=== PATIENT | female | born 1975 | race African-American/Black ===

== ENCOUNTER 2020-09-06 23:32 | Inpatient (IN) | payer BC ==
[2020-09-07] MEDS ORDERED: ACETAMINOPHEN 500 MG TABLET (FP) PO ONE (00:49)
[2020-09-07] MEDS ORDERED: ACETAMINOPHEN 325 MG TABLET (FP) ONE (00:58)
[2020-09-07 01:45] LABS: EPI CELLS 32 /uL (0-25.1); HYALINE CASTS 2 /uL (0-3.1); PH,URINE 5.5 (5.0-8.0); URINE APPEARANCE CLEAR; URINE BACTERIA 4 /uL (0-1359); URINE BILIRUBIN NEGATIVE (NEGATIVE); URINE COLOR YELLOW; URINE GLUCOSE (UA) TRACE (NEGATIVE); URINE KETONE NEGATIVE (NEGATIVE); URINE LEUK ESTERASE NEGATIVE (NEGATIVE); URINE NITRITE NEGATIVE (NEGATIVE); URINE PROTEIN 2+ (NEGATIVE); URINE RBC 171 /uL (0-23.9); URINE UROBILINOGEN 0.2 mg/dL (0.2-1.0); URINE WBC 51 /uL (0-25.8)
[2020-09-07] MEDS ORDERED: SODIUM CHLORIDE 0.9% 500 ML INFUS.BAG IV ONE (01:54)
[2020-09-07] MEDS ORDERED: POLYETHYLENE GLYCOL 3350 119 GM BTL PO ONE (01:55)
[2020-09-07] MEDS ORDERED: morphine CARPU-JECT 2 MG/1 ML DISP.SYRIN IVPUSH ONE (01:55)
[2020-09-07] MEDS ORDERED: LACTULOSE 20 GM/30 ML UDC (FOR ORAL USE ONLY) PO ONE (02:00)
[2020-09-07] MEDS ORDERED: METOCLOPRAMIDE HCL INJECTION 10 MG/2 ML VIAL IVPB ONE (02:19)
[2020-09-07] MEDS ORDERED: LACTULOSE 20 GM/30 ML UDC (FOR ORAL USE ONLY) ONE (02:22)
[2020-09-07] MEDS ORDERED: METOCLOPRAMIDE HCL INJECTION 10 MG/2 ML VIAL ONE (02:23)
[2020-09-07] MEDS ORDERED: MORPHINE SULFATE 2 MG/ML VIAL ONE (02:23)
[2020-09-07 02:41] LABS: BASO % 0.3 % (0-2.0); EOS % 0.1 % (0-4.5); HEMATOCRIT 40.6 % (32.4-45.2); HEMOGLOBIN 13.4 GM/dL (10.7-15.3); LYMPH % 9.6 % (8-40); MCH 28.2 pg (25.7-33.7); MEAN CELL VOLUME 85.6 fl (80-96); MEAN PLT VOLUME 8.2 fl (7.5-11.1); MONO % 4.1 % (3.8-10.2); NEUT % 85.9 % (42.8-82.8); PLATELET COUNT 264 K/MM3 (134-434); RBC 4.74 M/mm3 (3.60-5.2); WHITE BLOOD COUNT 10.9 K/mm3 (4.0-10.0)
[2020-09-07 02:59] LABS: SODIUM 130 mmol/L (136-145)
[2020-09-07 03:01] LABS: ALBUMIN 3.4 g/dl (3.4-5.0); BLOOD UREA NITROGEN 16.6 mg/dL (7-18); CALCIUM 8.7 mg/dL (8.5-10.1); CO2 23 mmol/L (21-32)
[2020-09-07 03:02] LABS: GLUCOSE,RANDOM 139 mg/dL (74-106)
[2020-09-07 03:05] LABS: CREATININE 2.2 mg/dL (0.55-1.3); SGOT/AST 71 U/L (15-37)
[2020-09-07 03:06] LABS: BILIRUBIN,TOTAL 0.4 mg/dL (0.2-1); TOT PROT 8.4 g/dl (6.4-8.2)
[2020-09-07 03:07] LABS: ALK PHOS 109 U/L (45-117)
[2020-09-07 03:22] LABS: ANION GAP 6 MMOL/L (8-16); CHLORIDE 101 mmol/L (98-107); SGPT/ALT 24 U/L (13-61)
[2020-09-07 03:31] LABS: POTASSIUM 7.5 mmol/L (3.5-5.1)
[2020-09-07 05:06] LABS: POTASSIUM 4.3 mmol/L (3.5-5.1)
[2020-09-07 05:08] LABS: ALBUMIN 3.4 g/dl (3.4-5.0); BLOOD UREA NITROGEN 17.9 mg/dL (7-18); CALCIUM 8.5 mg/dL (8.5-10.1)
[2020-09-07 05:12] LABS: CREATININE 2.2 mg/dL (0.55-1.3)
[2020-09-07 05:13] LABS: BILIRUBIN,TOTAL 0.4 mg/dL (0.2-1); TOT PROT 7.9 g/dl (6.4-8.2)
[2020-09-07] MEDS ORDERED: ACETAMINOPHEN 1000 MG/100 ML VIAL (NON FORMULARY) IVPB ONE (08:37)
[2020-09-07] MEDS ORDERED: ACETAMINOPHEN INJECTION 100 ML IVPB ONE (08:43)
[2020-09-07] MEDS: DEXTROSE 5%-0.45% SALINE 1,000 ML IV SCH (11:45)
[2020-09-07] MEDS: ACETAMINOPHEN 1000 MG/100 ML VIAL (NON FORMULARY) IVPB PRN ×2 (15:10→23:54)
[2020-09-07 15:39] VITALS: BMI 28.2
[2020-09-07] MEDS: HEPARIN NA (PORCINE) 5,000 UNITS/ML 1ML VIAL SQ SCH (22:02)
[2020-09-08] MEDS: DEXTROSE 5%-0.45% SALINE 1,000 ML IV SCH ×2 (06:01→18:40)
[2020-09-08] MEDS: ACETAMINOPHEN 1000 MG/100 ML VIAL (NON FORMULARY) IVPB PRN (06:02)
[2020-09-08 07:06] LABS: BASO % 0.4 % (0-2.0); EOS % 1.1 % (0-4.5); HEMATOCRIT 40.2 % (32.4-45.2); HEMOGLOBIN 13.2 GM/dL (10.7-15.3); LYMPH % 21.8 % (8-40); MCHC 32.8 g/dl (32.0-36.0); MEAN CELL VOLUME 85.3 fl (80-96); MEAN PLT VOLUME 7.9 fl (7.5-11.1); MONO % 7.5 % (3.8-10.2); NEUT % 69.2 % (42.8-82.8); PLATELET COUNT 278 K/MM3 (134-434); RBC 4.71 M/mm3 (3.60-5.2); RDW 12.8 % (11.6-15.6); WHITE BLOOD COUNT 7.6 K/mm3 (4.0-10.0)
[2020-09-08 08:03] LABS: POTASSIUM 4.2 mmol/L (3.5-5.1)
[2020-09-08 08:30] LABS: ALBUMIN 3.2 g/dl (3.4-5.0); BILIRUBIN,TOTAL 0.8 mg/dL (0.2-1); TOT PROT 7.3 g/dl (6.4-8.2)
[2020-09-08 08:34] LABS: CALCIUM 8.8 mg/dL (8.5-10.1)
[2020-09-08] MEDS ORDERED: PT OWN MED DRAWER 7, Y5N ONE ×2 (10:37→10:46)
[2020-09-08] MEDS: HEPARIN NA (PORCINE) 5,000 UNITS/ML 1ML VIAL SQ SCH ×3 (10:40→22:57)
[2020-09-09 08:06] LABS: BASO % 0.8 % (0-2.0); EOS % 6.4 % (0-4.5); HEMATOCRIT 35.6 % (32.4-45.2); HEMOGLOBIN 11.7 GM/dL (10.7-15.3); LYMPH % 31.6 % (8-40); MCH 28.1 pg (25.7-33.7); MCHC 32.9 g/dl (32.0-36.0); MEAN CELL VOLUME 85.3 fl (80-96); MEAN PLT VOLUME 7.9 fl (7.5-11.1); MONO % 9.8 % (3.8-10.2); NEUT % 51.4 % (42.8-82.8); PLATELET COUNT 254 K/MM3 (134-434); RBC 4.17 M/mm3 (3.60-5.2); RDW 12.7 % (11.6-15.6); WHITE BLOOD COUNT 6.2 K/mm3 (4.0-10.0)
[2020-09-09 08:29] LABS: POTASSIUM 3.7 mmol/L (3.5-5.1)
[2020-09-09 08:33] LABS: ALBUMIN 2.7 g/dl (3.4-5.0); CALCIUM 8.1 mg/dL (8.5-10.1)
[2020-09-09 08:36] LABS: CREATININE 0.8 mg/dL (0.55-1.3)
[2020-09-09 08:38] LABS: BILIRUBIN,TOTAL 0.6 mg/dL (0.2-1); TOT PROT 6.1 g/dl (6.4-8.2)
[2020-09-09] MEDS: HEPARIN NA (PORCINE) 5,000 UNITS/ML 1ML VIAL SQ SCH ×2 (09:58→21:59)
[2020-09-09] MEDS ORDERED: ACETAMINOPHEN 500 MG TABLET (FP) PO PRN (11:40)
[2020-09-09] MEDS: metroNIDAZOLE 250 MG TABLET PO SCH (21:58)
[2020-09-10] MEDS: metroNIDAZOLE 250 MG TABLET PO SCH ×3 (06:39→21:43)
[2020-09-10 08:11] LABS: POTASSIUM 3.9 mmol/L (3.5-5.1)
[2020-09-10 08:13] LABS: BLOOD UREA NITROGEN 9.7 mg/dL (7-18); CALCIUM 8.3 mg/dL (8.5-10.1)
[2020-09-10 08:17] LABS: CREATININE 0.7 mg/dL (0.55-1.3)
[2020-09-10] MEDS: HEPARIN NA (PORCINE) 5,000 UNITS/ML 1ML VIAL SQ SCH ×2 (10:58→21:51)
[2020-09-11] MEDS: metroNIDAZOLE 250 MG TABLET PO SCH ×3 (06:24→22:41)
[2020-09-11] MEDS: HEPARIN NA (PORCINE) 5,000 UNITS/ML 1ML VIAL SQ SCH ×2 (10:46→22:43)
[2020-09-11] MEDS: DEXTROSE 5%-0.45% SALINE 1,000 ML IV SCH (13:00)
[2020-09-11] MEDS ORDERED: ONDANSETRON 4 MG/2 ML VIAL IVPUSH PRN (13:30)
[2020-09-11 14:02] LABS: BASO % 0.7 % (0-2.0); EOS % 1.3 % (0-4.5); HEMATOCRIT 38.2 % (32.4-45.2); HEMOGLOBIN 12.7 GM/dL (10.7-15.3); LYMPH % 15.1 % (8-40); MCH 28.5 pg (25.7-33.7); MCHC 33.2 g/dl (32.0-36.0); MEAN CELL VOLUME 85.8 fl (80-96); MEAN PLT VOLUME 8.1 fl (7.5-11.1); MONO % 8.3 % (3.8-10.2); NEUT % 74.6 % (42.8-82.8); PLATELET COUNT 290 K/MM3 (134-434); RBC 4.45 M/mm3 (3.60-5.2); RDW 12.7 % (11.6-15.6); WHITE BLOOD COUNT 8.1 K/mm3 (4.0-10.0)
[2020-09-11 14:27] LABS: POTASSIUM 3.6 mmol/L (3.5-5.1)
[2020-09-11 14:32] LABS: ALBUMIN 3.2 g/dl (3.4-5.0); BLOOD UREA NITROGEN 8.9 mg/dL (7-18); CALCIUM 8.4 mg/dL (8.5-10.1)
[2020-09-11 14:36] LABS: BILIRUBIN,TOTAL 0.6 mg/dL (0.2-1); CREATININE 0.8 mg/dL (0.55-1.3); TOT PROT 6.8 g/dl (6.4-8.2)
[2020-09-11] MEDS: DOCUSATE SODIUM 100 MG CAPSULE (FP) PO SCH ×2 (15:53→22:43)
[2020-09-12] MEDS: metroNIDAZOLE 250 MG TABLET PO SCH ×3 (06:01→22:33)
[2020-09-12] MEDS: DOCUSATE SODIUM 100 MG CAPSULE (FP) PO SCH ×3 (06:02→22:34)
[2020-09-12 10:06] LABS: POTASSIUM 3.4 mmol/L (3.5-5.1)
[2020-09-12 10:10] LABS: BLOOD UREA NITROGEN 8.2 mg/dL (7-18); CALCIUM 8.3 mg/dL (8.5-10.1)
[2020-09-12 10:13] LABS: BILIRUBIN,TOTAL 0.9 mg/dL (0.2-1); CREATININE 0.8 mg/dL (0.55-1.3)
[2020-09-12 10:14] LABS: TOT PROT 6.8 g/dl (6.4-8.2)
[2020-09-12] MEDS: HEPARIN NA (PORCINE) 5,000 UNITS/ML 1ML VIAL SQ SCH ×2 (11:33→22:34)
[2020-09-12] MEDS: DEXTROSE 5%-0.45% SALINE 1,000 ML IV SCH (15:59)
[2020-09-12] MEDS ORDERED: POTASSIUM CHLORIDE ORAL LIQUID 20 MEQ/15 ML PO ONE (16:35)
[2020-09-12 22:14] VITALS: TEMP 98.9
[2020-09-13] MEDS: DOCUSATE SODIUM 100 MG CAPSULE (FP) PO SCH ×2 (05:02→05:21)
[2020-09-13] MEDS: metroNIDAZOLE 250 MG TABLET PO SCH (05:13)
[2020-09-13 06:06] VITALS: BP 112/67; PULSE 93
[2020-09-13] MEDS: HEPARIN NA (PORCINE) 5,000 UNITS/ML 1ML VIAL SQ SCH (09:55)
== END 2020-09-13 13:21 | disposition home or self-care (01) | DRG 699 ==
LOC: JER 23:32 → JERBED 09-07 03:47 → J8W 09-07 14:20
PROVIDERS: ADMIT Internal Medicine; ATTEND Internal Medicine
PROC: BT10ZZZ Fluoroscopy of Bladder (ICD-10-PCS; principal; 2020-09-12)
DX: N99.89 Other postprocedural complications and disorders of genitourinary system (principal); N17.9 Acute kidney failure, unspecified; E87.5 Hyperkalemia; R33.9 Retention of urine, unspecified; K66.9 Disorder of peritoneum, unspecified; N93.9 Abnormal uterine and vaginal bleeding, unspecified; E87.6 Hypokalemia; K59.09 Other constipation; R73.9 Hyperglycemia, unspecified; Y83.9 Surgical procedure, unspecified as the cause of abnormal reaction of the patient, or of later complication, without mention of misadventure at the time of the procedure; Z88.0 Allergy status to penicillin
CPT/HCPCS: 36415; 51600; 71045-TC-FY; 74018-TC-FY; 74021-TC-FY; 74176-TC; 74430-TC-FY; 76000-TC-FY; 80048; 80053; 81003; 84702; 84703; 85025; 87086; 93005; 93010; 99285-25; C9803; J0131; J1644; Q9967; U0003

== ENCOUNTER 2021-07-05 18:21 | Emergency (ER) | payer OTHER, BC ==
[2021-07-05 18:33] VITALS: BP 120/90; PULSE 84; TEMP 98; BMI 25.6
[2021-07-05] MEDS ORDERED: IBUPROFEN 600 MG TABLET (FP) PO ONE ×2 (18:58→18:59)
== END 2021-07-05 19:46 | disposition home or self-care (01) ==
LOC: JERFT 18:21 → JER 18:21 → JERFT 19:46
DX: M25.561 Pain in right knee (principal); R51.9 Headache, unspecified; V49.40XA Driver injured in collision with unspecified motor vehicles in traffic accident, initial encounter
CPT/HCPCS: 99283-25

== ENCOUNTER 2021-07-30 11:43 | Inpatient (IN) | payer BC, OTHER ==
[2021-07-30] MEDS ORDERED: ACETAMINOPHEN 1000 MG/100 ML VIAL IVPB ONE ×2 (12:28→20:53)
[2021-07-30] MEDS ORDERED: SODIUM CHLORIDE 1,000 ML IV STA (12:28)
[2021-07-30] MEDS ORDERED: FAMOTIDINE 20 MG/50 ML IVPB 20 MG/50 ML MG IVPB ONE ×2 (12:28→12:36)
[2021-07-30] MEDS ORDERED: ACETAMINOPHEN INJECTION 100 ML IVPB ONE ×2 (12:36→21:04)
[2021-07-30 13:15] LABS: HEMATOCRIT 41.6 % (32.4-45.2); HEMOGLOBIN 13.6 GM/dL (10.7-15.3); MCH 28.1 pg (25.7-33.7); MCHC 32.8 g/dl (32.0-36.0); MEAN CELL VOLUME 85.8 fl (80-96); MEAN PLT VOLUME 7.8 fl (7.5-11.1); PLATELET COUNT 311 10^3/uL (134-434); RBC 4.85 M/mm3 (3.60-5.2); RDW 13.6 % (11.6-15.6); WHITE BLOOD COUNT 11.4 K/mm3 (4.0-10.0)
[2021-07-30 13:28] LABS: CALCIUM 9.2 mg/dL (8.5-10.1)
[2021-07-30 13:29] LABS: ALBUMIN 3.8 g/dl (3.4-5.0); BLOOD UREA NITROGEN 23.8 mg/dL (7-18)
[2021-07-30 13:32] LABS: CREATININE 2.4 mg/dL (0.55-1.3)
[2021-07-30 13:33] LABS: BILIRUBIN,TOTAL 0.3 mg/dL (0.2-1); TOT PROT 8.7 g/dl (6.4-8.2)
[2021-07-30 13:59] LABS: ANISOCYTOSIS 0; HELMET CELLS 0; HOWELL-JOLLY BODIES 0; MACROCYTOSIS 0; OVALOCYTE 0; PLATELET ESTIMATE NORMAL; ROULEAU 0; SICKELED CELLS 0; TARGET CELLS 0; TEAR DROP CELLS 0; TOXIC GRANULATION 0
[2021-07-30 15:00] LABS: EPI CELLS >36 /uL (0-25.1); HYALINE CASTS 7 /uL (0-3.1); URINE APPEARANCE TURBID; URINE BACTERIA 2509 /uL (0-1359); URINE BILIRUBIN NEGATIVE (NEGATIVE); URINE COLOR YELLOW; URINE GLUCOSE (UA) NEGATIVE (NEGATIVE); URINE KETONE NEGATIVE (NEGATIVE); URINE LEUK ESTERASE NEGATIVE (NEGATIVE); URINE NITRITE NEGATIVE (NEGATIVE); URINE PROTEIN 1+ (NEGATIVE); URINE RBC 196 /uL (0-23.9); URINE UROBILINOGEN 0.2 mg/dL (0.2-1.0)
[2021-07-30] MEDS ORDERED: morphine CARPU-JECT 4 MG/1 ML DISP.SYRIN IVPUSH ONE (15:07)
[2021-07-30] MEDS ORDERED: morphine SULFATE 4 MG/ML VIAL ONE (15:10)
[2021-07-30 15:24] LABS: URINE WBC 198.9 /uL (0-25.8)
[2021-07-30] MEDS ORDERED: LACTULOSE 20 GM/30 ML UDC (FOR ORAL USE ONLY) PO ONE (16:22)
[2021-07-30] MEDS ORDERED: CEFTRIAXONE 1 GM in DEXTROSE 5%-WATER - 50 ML IVPB SCH (16:30)
[2021-07-30] MEDS ORDERED: CEFOTAXIME SODIUM 2,000 MG in DEXTROSE 5%-WATER - 50 ML IVPB SCH (16:45)
[2021-07-30] MEDS ORDERED: AZTREONAM 2 GM in DEXTROSE 5%-WATER 100 ML IVPB SCH ×2 (19:15→22:00)
[2021-07-30] MEDS ORDERED: ONDANSETRON 4 MG/2 ML VIAL IVPUSH ONE (20:53)
[2021-07-30] MEDS ORDERED: AZTREONAM 1 GM VIAL (RESTRICTED TO ID) ONE (21:04)
[2021-07-30] MEDS ORDERED: POLYETHYLENE GLYCOL (HEALTHYLAX) 3350 17 GM PACKET ONE (21:04)
[2021-07-30] MEDS ORDERED: ONDANSETRON 4 MG/2 ML VIAL ONE (21:04)
[2021-07-30] MEDS: POLYETHYLENE GLYCOL (HEALTHYLAX) 3350 17 GM PACKET PO SCH (21:12)
[2021-07-30] MEDS ORDERED: LACTULOSE 20 GM/30 ML UDC (FOR ORAL USE ONLY) PO PRN (22:00)
[2021-07-30] MEDS ORDERED: AZTREONAM 2 GM/10 ML SYRINGE (RESTRICTED TO ID) IVPUSH SCH (22:00)
[2021-07-31 04:16] VITALS: BMI 26.6
[2021-07-31] MEDS: POLYETHYLENE GLYCOL (HEALTHYLAX) 3350 17 GM PACKET PO SCH ×3 (06:56→21:24)
[2021-07-31 07:59] LABS: BASO % 0.4 % (0-2.0); HEMATOCRIT 40.7 % (32.4-45.2); HEMOGLOBIN 13.6 GM/dL (10.7-15.3); LYMPH % 15.9 % (8-40); MCH 28.5 pg (25.7-33.7); MCHC 33.5 g/dl (32.0-36.0); MEAN CELL VOLUME 85.3 fl (80-96); MEAN PLT VOLUME 8.1 fl (7.5-11.1); MONO % 5.5 % (3.8-10.2); NEUT % 78.2 % (42.8-82.8); PLATELET COUNT 314 10^3/uL (134-434); RBC 4.77 M/mm3 (3.60-5.2); RDW 13.6 % (11.6-15.6); WHITE BLOOD COUNT 9.2 K/mm3 (4.0-10.0)
[2021-07-31 08:08] LABS: INR 1.09 (0.83-1.09); PROTHROMBIN TIME (PATIENT) 13.4 SEC (9.7-13.0)
[2021-07-31 08:16] LABS: ALBUMIN 3.6 g/dl (3.4-5.0); BLOOD UREA NITROGEN 33.1 mg/dL (7-18)
[2021-07-31 08:19] LABS: CREATININE 4.3 mg/dL (0.55-1.3)
[2021-07-31 08:21] LABS: BILIRUBIN,TOTAL 0.5 mg/dL (0.2-1); TOT PROT 8.4 g/dl (6.4-8.2)
[2021-07-31] MEDS ORDERED: PT OWN MED DRAWER 7, Y5N ONE (09:06)
[2021-07-31] MEDS ORDERED: SODIUM CHLORIDE 0.9% 500 ML INFUS.BAG IV ONE ×2 (09:08→09:47)
[2021-07-31] MEDS ORDERED: HYDROmorphone HCl 2 MG/ML VIAL IVPB ONE (09:31)
[2021-07-31] MEDS ORDERED: ALBUMIN HUMAN 25% 100 ML VIAL IVPB SCH (10:00)
[2021-07-31] MEDS: LACTATED RINGERS SOLUTION 1,000 ML/1,000 ML INFUS.BAG IV SCH ×2 (10:07→23:49)
[2021-07-31] MEDS ORDERED: AZTREONAM 1 GM in DEXTROSE 5%-WATER - 50 ML IVPB SCH (12:00)
[2021-07-31] MEDS ORDERED: AZTREONAM 1 GM VIAL (RESTRICTED TO ID) ONE ×2 (12:34→23:46)
[2021-07-31] MEDS ORDERED: DEXTROSE 5%-WATER - 50 ML IVPB ONE ×2 (12:34→23:47)
[2021-07-31] MEDS: AZTREONAM 1 GM in DEXTROSE 5%-WATER - 50 ML IVPB SCH ×2 (12:42→23:49)
[2021-07-31 16:03] LABS: BF WBC & OTHER NUCLEATED CELLS 468 /mm3
[2021-07-31] MEDS ORDERED: ONDANSETRON 4 MG/2 ML VIAL IVPUSH PRN (16:15)
[2021-07-31 17:06] LABS: BODY FLUID MESOTHELIAL 3 %
[2021-07-31 17:19] LABS: BODY FLUID MACROPHAGES 68 %
[2021-07-31 17:20] LABS: BODY FLUID MONOCYTE 15 %
[2021-07-31] MEDS ORDERED: DOCUSATE SODIUM 100 MG CAPSULE (FP) PO PRN (19:45)
[2021-07-31] MEDS ORDERED: ACETAMINOPHEN 1000 MG/100 ML VIAL IVPB ONE (21:40)
[2021-08-01] MEDS: POLYETHYLENE GLYCOL (HEALTHYLAX) 3350 17 GM PACKET PO SCH ×3 (06:14→21:59)
[2021-08-01] MEDS: LACTATED RINGERS SOLUTION 1,000 ML/1,000 ML INFUS.BAG IV SCH (09:21)
[2021-08-01 11:32] LABS: BASO % 0.5 % (0-2.0); EOS % 0.8 % (0-4.5); HEMATOCRIT 41.3 % (32.4-45.2); HEMOGLOBIN 13.7 GM/dL (10.7-15.3); LYMPH % 16.1 % (8-40); MCH 28.5 pg (25.7-33.7); MCHC 33.3 g/dl (32.0-36.0); MEAN CELL VOLUME 85.5 fl (80-96); MEAN PLT VOLUME 8.3 fl (7.5-11.1); MONO % 6.5 % (3.8-10.2); NEUT % 76.1 % (42.8-82.8); PLATELET COUNT 309 10^3/uL (134-434); RBC 4.83 M/mm3 (3.60-5.2); RDW 13.8 % (11.6-15.6); WHITE BLOOD COUNT 8.2 K/mm3 (4.0-10.0)
[2021-08-01] MEDS ORDERED: DEXTROSE 5%-WATER - 50 ML IVPB ONE (12:02)
[2021-08-01] MEDS ORDERED: AZTREONAM 1 GM VIAL (RESTRICTED TO ID) ONE (12:02)
[2021-08-01] MEDS: AZTREONAM 1 GM in DEXTROSE 5%-WATER - 50 ML IVPB SCH (12:06)
[2021-08-01] MEDS ORDERED: ACETAMINOPHEN 1000 MG/100 ML VIAL IVPB PRN (12:21)
[2021-08-01 13:28] LABS: CALCIUM 8.5 mg/dL (8.5-10.1)
[2021-08-01 13:29] LABS: MAGNESIUM 2.4 mg/dL (1.8-2.4)
[2021-08-01 13:32] LABS: CREATININE 4.6 mg/dL (0.55-1.3); PHOSPHOROUS 4.2 mg/dL (2.5-4.9)
[2021-08-01 13:33] LABS: BILIRUBIN,TOTAL 0.8 mg/dL (0.2-1); TOT PROT 7.6 g/dl (6.4-8.2)
[2021-08-02] MEDS ORDERED: AZTREONAM 1 GM VIAL (RESTRICTED TO ID) ONE ×3 (00:28→23:28)
[2021-08-02] MEDS ORDERED: DEXTROSE 5%-WATER - 50 ML IVPB ONE ×3 (00:28→23:28)
[2021-08-02] MEDS: AZTREONAM 1 GM in DEXTROSE 5%-WATER - 50 ML IVPB SCH ×2 (00:29→12:27)
[2021-08-02] MEDS: POLYETHYLENE GLYCOL (HEALTHYLAX) 3350 17 GM PACKET PO SCH ×3 (06:09→23:45)
[2021-08-02 08:39] LABS: BASO % 0.5 % (0-2.0); EOS % 0.4 % (0-4.5); HEMATOCRIT 39.7 % (32.4-45.2); HEMOGLOBIN 13.2 GM/dL (10.7-15.3); LYMPH % 19.5 % (8-40); MCH 28.5 pg (25.7-33.7); MCHC 33.3 g/dl (32.0-36.0); MEAN CELL VOLUME 85.4 fl (80-96); MEAN PLT VOLUME 8.1 fl (7.5-11.1); MONO % 7.1 % (3.8-10.2); NEUT % 72.5 % (42.8-82.8); PLATELET COUNT 298 10^3/uL (134-434); RBC 4.65 M/mm3 (3.60-5.2); RDW 13.6 % (11.6-15.6); WHITE BLOOD COUNT 6.8 K/mm3 (4.0-10.0)
[2021-08-02 09:03] LABS: ALBUMIN 2.8 g/dl (3.4-5.0); BLOOD UREA NITROGEN 15.8 mg/dL (7-18); CALCIUM 7.9 mg/dL (8.5-10.1)
[2021-08-02 09:07] LABS: CREATININE 1.8 mg/dL (0.55-1.3)
[2021-08-02 09:08] LABS: BILIRUBIN,TOTAL 0.6 mg/dL (0.2-1); TOT PROT 7.3 g/dl (6.4-8.2)
[2021-08-02] MEDS: LACTATED RINGERS SOLUTION 1,000 ML/1,000 ML INFUS.BAG IV SCH (09:12)
[2021-08-02 10:07] LABS: CARCINOEMBRYONIC ANTIGEN 1.6 ng/mL (0.0-4.7)
[2021-08-02] MEDS ORDERED: SENNOSIDES 8.6MG TABLET (FP) PO ONE (14:00)
[2021-08-02 18:07] LABS: BODY FLUID ALBUMIN 0.3 g/dL (Not Estab.)
[2021-08-03] MEDS: AZTREONAM 1 GM in DEXTROSE 5%-WATER - 50 ML IVPB SCH ×2 (00:26→11:14)
[2021-08-03] MEDS: LACTATED RINGERS SOLUTION 1,000 ML/1,000 ML INFUS.BAG IV SCH ×3 (00:27→14:06)
[2021-08-03] MEDS: POLYETHYLENE GLYCOL (HEALTHYLAX) 3350 17 GM PACKET PO SCH ×3 (05:57→21:06)
[2021-08-03] MEDS ORDERED: AZTREONAM 1 GM VIAL (RESTRICTED TO ID) ONE (11:13)
[2021-08-03] MEDS ORDERED: DEXTROSE 5%-WATER - 50 ML IVPB ONE (11:13)
[2021-08-03] MEDS ORDERED: ONDANSETRON 4 MG/2 ML VIAL IVPB PRN (13:56)
[2021-08-03] MEDS ORDERED: DOCUSATE SODIUM 100 MG CAPSULE (FP) PO PRN (13:56)
[2021-08-04] MEDS ORDERED: DEXTROSE 5%-WATER - 50 ML IVPB ONE ×2 (01:04→12:10)
[2021-08-04] MEDS ORDERED: AZTREONAM 1 GM VIAL (RESTRICTED TO ID) ONE ×2 (01:04→12:10)
[2021-08-04] MEDS: AZTREONAM 1 GM in DEXTROSE 5%-WATER - 50 ML IVPB SCH ×2 (01:32→12:24)
[2021-08-04] MEDS: POLYETHYLENE GLYCOL (HEALTHYLAX) 3350 17 GM PACKET PO SCH ×3 (06:15→21:24)
[2021-08-04] MEDS: LACTATED RINGERS SOLUTION 1,000 ML/1,000 ML INFUS.BAG IV SCH ×3 (07:49→18:47)
[2021-08-04] MEDS ORDERED: PT OWN MED DRAWER 7, Y5N ONE (15:18)
[2021-08-05] MEDS ORDERED: AZTREONAM 1 GM VIAL (RESTRICTED TO ID) ONE (00:12)
[2021-08-05] MEDS ORDERED: DEXTROSE 5%-WATER - 50 ML IVPB ONE (00:12)
[2021-08-05] MEDS: AZTREONAM 1 GM in DEXTROSE 5%-WATER - 50 ML IVPB SCH (00:22)
[2021-08-05 08:12] LABS: EOS % 3.9 % (0-4.5); HEMATOCRIT 33.6 % (32.4-45.2); HEMOGLOBIN 11.1 GM/dL (10.7-15.3); LYMPH % 34.9 % (8-40); MCH 28.4 pg (25.7-33.7); MCHC 33.2 g/dl (32.0-36.0); MEAN CELL VOLUME 85.4 fl (80-96); MEAN PLT VOLUME 7.9 fl (7.5-11.1); MONO % 9.8 % (3.8-10.2); NEUT % 50.4 % (42.8-82.8); PLATELET COUNT 292 10^3/uL (134-434); RBC 3.93 M/mm3 (3.60-5.2); RDW 13.3 % (11.6-15.6); WHITE BLOOD COUNT 4.8 K/mm3 (4.0-10.0)
[2021-08-05 08:32] LABS: ALBUMIN 2.3 g/dl (3.4-5.0); CALCIUM 8.6 mg/dL (8.5-10.1)
[2021-08-05 08:33] LABS: BLOOD UREA NITROGEN 7.1 mg/dL (7-18)
[2021-08-05 08:36] LABS: CREATININE 0.7 mg/dL (0.55-1.3)
[2021-08-05 08:37] LABS: BILIRUBIN,TOTAL 0.2 mg/dL (0.2-1); TOT PROT 6.1 g/dl (6.4-8.2)
[2021-08-05] MEDS ORDERED: SPIRONOLACTONE 25 MG TABLET PO SCH (10:00)
[2021-08-05 12:10] LABS: ANTIGLOMERULAR BASEMENT MEN.AB 3 units (0-20)
[2021-08-05 16:10] LABS: ATYPICAL pANCA <1:20 titer (Neg:<1:20); C-ANCA <1:20 titer (Neg:<1:20)
[2021-08-06 08:12] LABS: CALCIUM 8.3 mg/dL (8.5-10.1)
[2021-08-06 08:13] LABS: BLOOD UREA NITROGEN 10.2 mg/dL (7-18)
[2021-08-06 08:16] LABS: CREATININE 0.6 mg/dL (0.55-1.3)
[2021-08-06 08:59] VITALS: BP 101/68; PULSE 76; TEMP 97.9
[2021-08-06] MEDS: SPIRONOLACTONE 25 MG TABLET PO SCH ×2 (10:35→10:37)
== END 2021-08-06 12:07 | disposition home or self-care (01) | DRG 683 ==
LOC: JER 11:43 → JERBED 16:08 → J8W 21:33 → J4W 07-31 10:55 → J8W 08-03 13:51
PROVIDERS: ADMIT Internal Medicine; ATTEND Internal Medicine
PROC: 0W9G30Z Drainage of Peritoneal Cavity with Drainage Device, Percutaneous Approach (ICD-10-PCS; principal; 2021-07-31)
DX: N17.9 Acute kidney failure, unspecified (principal); R18.8 Other ascites; E87.1 Hypo-osmolality and hyponatremia; N39.0 Urinary tract infection, site not specified; N18.9 Chronic kidney disease, unspecified; R11.2 Nausea with vomiting, unspecified; K59.00 Constipation, unspecified; R33.9 Retention of urine, unspecified; E86.0 Dehydration; K21.9 Gastro-esophageal reflux disease without esophagitis
CPT/HCPCS: 36415; 71046-TC-FY; 74176-TC; 76700-TC; 76705-TC; 76775-TC; 76942-TC; 80048; 80053; 81003; 82042; 82105; 82140; 82150; 82340; 82378; 82465; 82550; 82570; 82945; 83516; 83520; 83540; 83550; 83605; 83615; 83690; 83735; 83986; 84100; 84155; 84157; 84165; 84300; 84478; 84703; 85025; 85610; 86038; 86140; 86225; 86256; 86304; 86706; 86803; 87070; 87075; 87086; 87102; 87116; 87205; 87206; 87210; 87340; 87517; 88108; 88305-TC; 93976; 99285-25; C9803; J0131; U0003; U0005

== ENCOUNTER 2024-01-08 10:16 | Inpatient (IN) | payer BC ==
[2024-01-08 11:21] LABS: HEMATOCRIT 39.2 % (32.4-45.2); MCH 28.4 pg (25.7-33.7); MCHC 33.1 g/dl (32.0-36.0); MEAN CELL VOLUME 85.6 fl (80-96); MEAN PLT VOLUME 7.6 fl (7.5-11.1); PLATELET COUNT 255 10^3/uL (134-434); RBC 4.58 M/mm3 (3.60-5.2); WHITE BLOOD COUNT 5.8 K/mm3 (4.0-10.0)
[2024-01-08 11:24] LABS: EPI CELLS 9 /uL (0-25.1); HYALINE CASTS 0 /uL (0-3.1); PH,URINE 5.5 (5.0-8.0); URINE APPEARANCE CLEAR; URINE BACTERIA 8 /uL (0-1359); URINE BILIRUBIN NEGATIVE (NEGATIVE); URINE COLOR YELLOW; URINE GLUCOSE (UA) NEGATIVE (NEGATIVE); URINE KETONE 1+ (NEGATIVE); URINE LEUK ESTERASE NEGATIVE (NEGATIVE); URINE NITRITE NEGATIVE (NEGATIVE); URINE PROTEIN 2+ (NEGATIVE); URINE RBC 667 /uL (0-23.9); URINE UROBILINOGEN 0.2 mg/dL (0.2-1.0); URINE WBC 46 /uL (0-25.8)
[2024-01-08 11:45] LABS: POTASSIUM 4.3 mmol/L (3.5-5.1)
[2024-01-08 11:47] LABS: ALBUMIN 3.9 g/dl (3.4-5.0); BLOOD UREA NITROGEN 23.7 mg/dL (7-18); CALCIUM 9.7 mg/dL (8.5-10.1)
[2024-01-08 11:51] LABS: CREATININE 2.2 mg/dL (0.55-1.3)
[2024-01-08 11:52] LABS: ANISOCYTOSIS 0; HELMET CELLS 0; HOWELL-JOLLY BODIES 0; MACROCYTOSIS 0; OVALOCYTE 0; ROULEAU 0; SICKELED CELLS 0; TARGET CELLS 0; TEAR DROP CELLS 0; TOXIC GRANULATION 0
[2024-01-08 11:52] LABS: BILIRUBIN,TOTAL 0.4 mg/dL (0.2-1); TOT PROT 8.8 g/dl (6.4-8.2)
[2024-01-08] MEDS: SODIUM CHLORIDE 1,000 ML IV STA (13:22)
[2024-01-08] MEDS ORDERED: ACETAMINOPHEN 325 MG TABLET (FP) PO PRN (15:43)
[2024-01-08 17:33] VITALS: BMI 24.0
[2024-01-08] MEDS: SPIRONOLACTONE 25 MG TABLET PO SCH (21:13)
[2024-01-09] MEDS: PANTOPRAZOLE 40 MG TABLET PO SCH (09:09)
[2024-01-09 10:00] LABS: HEMATOCRIT 35.1 % (32.4-45.2); HEMOGLOBIN 11.7 GM/dL (10.7-15.3); MCH 28.4 pg (25.7-33.7); MCHC 33.4 g/dl (32.0-36.0); MEAN CELL VOLUME 85.2 fl (80-96); PLATELET COUNT 234 10^3/uL (134-434); RBC 4.12 M/mm3 (3.60-5.2); RDW 12.7 % (11.6-15.6); WHITE BLOOD COUNT 4.1 K/mm3 (4.0-10.0)
[2024-01-09 10:14] LABS: POTASSIUM 4.3 mmol/L (3.5-5.1)
[2024-01-09 10:18] LABS: ALBUMIN 3.2 g/dl (3.4-5.0); BLOOD UREA NITROGEN 10.7 mg/dL (7-18); CALCIUM 8.7 mg/dL (8.5-10.1)
[2024-01-09 10:20] VITALS: RESP 18
[2024-01-09 10:21] LABS: CREATININE 0.8 mg/dL (0.55-1.3)
[2024-01-09 10:23] LABS: BILIRUBIN,TOTAL 0.8 mg/dL (0.2-1); TOT PROT 7.2 g/dl (6.4-8.2)
[2024-01-09] MEDS ORDERED: DOCUSATE SODIUM 100 MG CAPSULE (FP) PO PRN (15:08)
[2024-01-09] MEDS: DOCUSATE SODIUM 100 MG CAPSULE (FP) PO PRN (16:48)
[2024-01-10] MEDS: POLYETHYLENE GLYCOL (HEALTHYLAX) 3350 17 GM PACKET PO PRN (06:01)
[2024-01-10] MEDS: TAMSULOSIN HCL 0.4 MG CAP PO SCH (08:32)
[2024-01-10] MEDS: POLYETHYLENE GLYCOL (HEALTHYLAX) 3350 17 GM PACKET PO SCH (13:39)
[2024-01-10] MEDS: MAGNESIUM HYDROX 2400MG/30ML ORAL SUSPENSION 30 ML CUP PO ONE (14:09)
[2024-01-10] MEDS: SODIUM PHOSPHATE/NA BIPHOS 133 ML ENEMA RC ONE (15:15)
[2024-01-10 16:06] VITALS: BP 116/74; PULSE 73; TEMP 98.3
[2024-01-10] MEDS ORDERED: POLYETHYLENE GLYCOL (HEALTHYLAX) 3350 17 GM PACKET PO SCH (22:00)
== END 2024-01-10 18:55 | disposition home or self-care (01) | DRG 684 ==
LOC: JER 10:16 → OBSVTOIN 14:26 → JERBED 14:26 → J6S 17:20
PROVIDERS: ADMIT Family Medicine; ATTEND Family Medicine
DX: N17.9 Acute kidney failure, unspecified (principal); R33.8 Other retention of urine; R31.9 Hematuria, unspecified; K59.00 Constipation, unspecified; N83.201 Unspecified ovarian cyst, right side; D25.9 Leiomyoma of uterus, unspecified
CPT/HCPCS: 0241U-QW; 36415; 74176-TC; 80053; 81003; 84703; 85025; 85027; 87086; 99285-25

== ENCOUNTER 2024-03-16 08:38 | Inpatient (IN) | payer BC ==
[2024-03-16 10:13] LABS: EPI CELLS 6 /uL (0-25.1); HYALINE CASTS 0 /uL (0-3.1); URINE APPEARANCE CLEAR; URINE BACTERIA 5 /uL (0-1359); URINE BILIRUBIN NEGATIVE (NEGATIVE); URINE COLOR YELLOW; URINE GLUCOSE (UA) NEGATIVE (NEGATIVE); URINE KETONE NEGATIVE (NEGATIVE); URINE LEUK ESTERASE NEGATIVE (NEGATIVE); URINE NITRITE NEGATIVE (NEGATIVE); URINE PROTEIN 1+ (NEGATIVE); URINE RBC 61 /uL (0-23.9); URINE UROBILINOGEN 0.2 mg/dL (0.2-1.0); URINE WBC 5 /uL (0-25.8)
[2024-03-16 10:29] LABS: HCG,QUALITATIVE URINE Negative
[2024-03-16 10:34] LABS: POTASSIUM 4.7 mmol/L (3.5-5.1)
[2024-03-16 10:36] LABS: BLOOD UREA NITROGEN 20.2 mg/dL (7-18); CALCIUM 9.4 mg/dL (8.5-10.1)
[2024-03-16 10:37] LABS: ALBUMIN 3.9 g/dl (3.4-5.0)
[2024-03-16 10:40] LABS: CREATININE 1.9 mg/dL (0.55-1.3)
[2024-03-16 10:41] LABS: BILIRUBIN,TOTAL 0.4 mg/dL (0.2-1); TOT PROT 8.3 g/dl (6.4-8.2)
[2024-03-16 10:51] LABS: BASO % 0.4 % (0-2.0); HEMATOCRIT 39.4 % (32.4-45.2); HEMOGLOBIN 13.1 GM/dL (10.7-15.3); LYMPH % 7.7 % (8-40); MCH 28.5 pg (25.7-33.7); MCHC 33.1 g/dl (32.0-36.0); MEAN PLT VOLUME 8.5 fl (7.5-11.1); MONO % 3.1 % (3.8-10.2); NEUT % 88.8 % (42.8-82.8); PLATELET COUNT 199 10^3/uL (134-434); RBC 4.59 M/mm3 (3.60-5.2); RDW 13.7 % (11.6-15.6); WHITE BLOOD COUNT 5.7 K/mm3 (4.0-10.0)
[2024-03-16] MEDS: LACTATED RINGERS SOLUTION 1000 ML INFUS.BAG IV ONE (11:15)
[2024-03-16 13:45] LABS: POTASSIUM 4.9 mmol/L (3.5-5.1)
[2024-03-16 13:46] LABS: CALCIUM 9.2 mg/dL (8.5-10.1)
[2024-03-16 13:47] LABS: BLOOD UREA NITROGEN 18.6 mg/dL (7-18)
[2024-03-16] MEDS ORDERED: ACETAMINOPHEN 325 MG TABLET (FP) ONE (13:52)
[2024-03-16] MEDS: ACETAMINOPHEN 325 MG TABLET (FP) PO ONE (13:55)
[2024-03-16 14:04] LABS: CREATININE 1.8 mg/dL (0.55-1.3)
[2024-03-16 18:34] VITALS: BMI 22.1
[2024-03-16] MEDS: LACTATED RINGERS SOLUTION 1,000 ML/1,000 ML INFUS.BAG IV SCH (19:06)
[2024-03-16] MEDS: SPIRONOLACTONE 25 MG TABLET PO SCH (22:02)
[2024-03-16] MEDS: DOCUSATE SODIUM 100 MG CAPSULE (FP) PO SCH (22:02)
[2024-03-17 08:25] LABS: BASO % 0.7 % (0-2.0); EOS % 0.3 % (0-4.5); HEMATOCRIT 38.7 % (32.4-45.2); HEMOGLOBIN 12.7 GM/dL (10.7-15.3); LYMPH % 25.4 % (8-40); MCH 28.1 pg (25.7-33.7); MCHC 32.7 g/dl (32.0-36.0); MEAN CELL VOLUME 85.9 fl (80-96); MEAN PLT VOLUME 8.3 fl (7.5-11.1); MONO % 7.2 % (3.8-10.2); NEUT % 66.4 % (42.8-82.8); PLATELET COUNT 195 10^3/uL (134-434); RDW 13.4 % (11.6-15.6); WHITE BLOOD COUNT 4.9 K/mm3 (4.0-10.0)
[2024-03-17 08:39] LABS: POTASSIUM 4.6 mmol/L (3.5-5.1)
[2024-03-17 08:42] LABS: ALBUMIN 3.5 g/dl (3.4-5.0); BLOOD UREA NITROGEN 24.7 mg/dL (7-18); CALCIUM 9.2 mg/dL (8.5-10.1)
[2024-03-17 08:47] LABS: BILIRUBIN,TOTAL 1.2 mg/dL (0.2-1); TOT PROT 7.7 g/dl (6.4-8.2)
[2024-03-17] MEDS: TAMSULOSIN HCL 0.4 MG CAP PO SCH (09:54)
[2024-03-17] MEDS ORDERED: ONDANSETRON 4 MG/2 ML VIAL IVPB PRN (14:24)
[2024-03-17] MEDS ORDERED: ONDANSETRON 4 MG/2 ML VIAL IVPUSH PRN (15:08)
[2024-03-17] MEDS: oxyCODONE HCL 5 MG TABLET PO PRN (15:28)
[2024-03-17 15:31] LABS: BF WBC & OTHER NUCLEATED CELLS 260 /mm3; BODY FLUID MONOCYTE 15 %
[2024-03-18 08:36] LABS: POTASSIUM 4.4 mmol/L (3.5-5.1)
[2024-03-18 08:45] LABS: HEMATOCRIT 35.8 % (32.4-45.2); HEMOGLOBIN 11.7 GM/dL (10.7-15.3); MCH 28.3 pg (25.7-33.7); MCHC 32.7 g/dl (32.0-36.0); MEAN CELL VOLUME 86.6 fl (80-96); MEAN PLT VOLUME 8.7 fl (7.5-11.1); PLATELET COUNT 186 10^3/uL (134-434); RBC 4.14 M/mm3 (3.60-5.2); RDW 13.5 % (11.6-15.6); WHITE BLOOD COUNT 4.9 K/mm3 (4.0-10.0)
[2024-03-18 08:46] LABS: CALCIUM 8.6 mg/dL (8.5-10.1)
[2024-03-18 08:47] LABS: ALBUMIN 3.3 g/dl (3.4-5.0); BLOOD UREA NITROGEN 31.8 mg/dL (7-18)
[2024-03-18 08:50] LABS: CREATININE 4.8 mg/dL (0.55-1.3)
[2024-03-18 08:52] LABS: BILIRUBIN,TOTAL 0.9 mg/dL (0.2-1)
[2024-03-18] MEDS: POLYETHYLENE GLYCOL (HEALTHYLAX) 3350 17 GM PACKET PO SCH (17:26)
[2024-03-19 07:48] LABS: HEMATOCRIT 36.2 % (32.4-45.2); HEMOGLOBIN 11.8 GM/dL (10.7-15.3); LYMPH % 45.5 % (8-40); MCH 28.1 pg (25.7-33.7); MCHC 32.7 g/dl (32.0-36.0); MEAN CELL VOLUME 86.1 fl (80-96); MEAN PLT VOLUME 8.5 fl (7.5-11.1); MONO % 10.5 % (3.8-10.2); PLATELET COUNT 198 10^3/uL (134-434); RDW 13.4 % (11.6-15.6); WHITE BLOOD COUNT 3.8 K/mm3 (4.0-10.0)
[2024-03-19 07:56] LABS: POTASSIUM 4.9 mmol/L (3.5-5.1)
[2024-03-19 08:02] LABS: ALBUMIN 3.3 g/dl (3.4-5.0); BLOOD UREA NITROGEN 30.6 mg/dL (7-18)
[2024-03-19 08:05] LABS: CREATININE 3.6 mg/dL (0.55-1.3)
[2024-03-19 08:07] LABS: BILIRUBIN,TOTAL 0.5 mg/dL (0.2-1); TOT PROT 7.2 g/dl (6.4-8.2)
[2024-03-20 08:50] LABS: EOS % 2.7 % (0-4.5); HEMATOCRIT 33.5 % (32.4-45.2); HEMOGLOBIN 11.1 GM/dL (10.7-15.3); LYMPH % 45.5 % (8-40); MCH 28.3 pg (25.7-33.7); MEAN PLT VOLUME 8.5 fl (7.5-11.1); MONO % 10.9 % (3.8-10.2); NEUT % 39.9 % (42.8-82.8); PLATELET COUNT 203 10^3/uL (134-434); RDW 12.9 % (11.6-15.6); WHITE BLOOD COUNT 3.4 K/mm3 (4.0-10.0)
[2024-03-20 08:53] LABS: POTASSIUM 5.1 mmol/L (3.5-5.1)
[2024-03-20 08:55] LABS: CALCIUM 8.7 mg/dL (8.5-10.1)
[2024-03-20 08:56] LABS: BLOOD UREA NITROGEN 22.5 mg/dL (7-18)
[2024-03-20 08:59] LABS: CREATININE 1.3 mg/dL (0.55-1.3)
[2024-03-20 09:00] LABS: TOT PROT 6.5 g/dl (6.4-8.2)
[2024-03-20 09:01] LABS: BILIRUBIN,TOTAL 0.6 mg/dL (0.2-1)
[2024-03-20 20:06] LABS: ANTIGLOMERULAR BASEMENT MEN.AB <0.2 units (0.0-0.9)
[2024-03-21 07:36] VITALS: BP 86/55; PULSE 67; RESP 18; TEMP 97.9
[2024-03-21 08:46] LABS: POTASSIUM 4.6 mmol/L (3.5-5.1)
[2024-03-21 08:48] LABS: ALBUMIN 3.1 g/dl (3.4-5.0); BLOOD UREA NITROGEN 14.1 mg/dL (7-18); CALCIUM 8.7 mg/dL (8.5-10.1)
[2024-03-21 08:52] LABS: CREATININE 0.9 mg/dL (0.55-1.3)
[2024-03-21 08:53] LABS: TOT PROT 6.8 g/dl (6.4-8.2)
[2024-03-21 08:54] LABS: BILIRUBIN,TOTAL 0.4 mg/dL (0.2-1)
[2024-03-22 15:09] LABS: BODY FLUID ALBUMIN 0.5 g/dL (Not Estab.)
[2024-03-22 16:08] LABS: C-ANCA <1:20 titer (Neg:<1:20)
== END 2024-03-21 12:38 | disposition home or self-care (01) | DRG 948 ==
LOC: JER 08:38 → JERBED 14:53 → J7W 17:18 → OBSVTOIN 03-17 11:29
PROVIDERS: ADMIT Internal Medicine; ATTEND Internal Medicine
PROC: 0W9G3ZZ Drainage of Peritoneal Cavity, Percutaneous Approach (ICD-10-PCS; principal; 2024-03-17)
DX: R18.8 Other ascites (principal); N17.9 Acute kidney failure, unspecified; N13.30 Unspecified hydronephrosis; K21.9 Gastro-esophageal reflux disease without esophagitis; K76.9 Liver disease, unspecified; K59.00 Constipation, unspecified; R33.8 Other retention of urine; D25.9 Leiomyoma of uterus, unspecified; Z88.0 Allergy status to penicillin
CPT/HCPCS: 36415; 74176-TC; 76775-TC; 76942-TC; 80048; 80053; 81003; 82042; 82150; 82465; 82945; 83516; 83520; 83615; 83735; 83986; 84157; 84478; 84703; 85025; 85027; 86038; 86160; 86225; 86256; 87070; 87075; 87086; 87102; 87116; 87205; 87206; 87210; 88108; 88305-TC; 93306-TC; 99285-25; G0378